=== PATIENT | female | born 1965 | race African-American/Black ===

== ENCOUNTER 2020-08-06 10:41 | Emergency (ER) | payer BC ==
[~2020-08-06] VITALS: Ht 165.1 cm; Wt 81.7 kg
[~2020-08-06 10:41] MED LIST: ALLEGRA180 MG PO; APAP/CODEINE ELI5 M1 OR; CIPROFLOXACIN500 M1 PO; DIFLUCAN150 MG PO; FLEXERIL PO; FLONASE 0.05%50 MCG NASAL; IBUPROFEN 800800 MG PO; MEDROL DOSPAK21 TAB PO; NORCO 5-325 TA1 EACH PO; NORFLEX100 MG PO; PHENERGAN 25 MG25 M1 PO; PROAIR HFA8.5 GM IH; PROMETHAZINE-C120 ML PO; TRAMADOL 50 MG50 MG PO; VITAMIN B-12100 MCG; VITAMINC500 PO; ZOFRAN ODT4 MG PO; ZPAK PO
[2020-08-06] MEDS ORDERED: TRAMADOL 50 MG50 MG PO (13:19)
[2020-08-06 13:55] VITALS: BP 126/78
== END 2020-08-06 13:55 | disposition home or self-care (01) ==
LOC: ER 10:41
DX: M54.5 Low back pain (principal); M25.511 Pain in right shoulder; M54.2 Cervicalgia; Z90.710 Acquired absence of both cervix and uterus; Z79.899 Other long term (current) drug therapy; Z88.0 Allergy status to penicillin; Z88.2 Allergy status to sulfonamides

== ENCOUNTER 2021-04-01 11:12 | Emergency (ER) | payer BC ==
[~2021-04-01] VITALS: Ht 165.1 cm; Wt 86.2 kg
[2021-04-01] MEDS ORDERED: MELOXICAM7.5 MG PO (11:26)
[2021-04-01] MEDS ORDERED: LOSARTAN-HCTZ1 EAC3 PO (11:26)
[2021-04-01] MEDS ORDERED: PROTONIX40 M2 PO (11:26)
[2021-04-01] MEDS ORDERED: LIDOCAINE1 EACH TOP (11:27)
[2021-04-01 13:04] VITALS: BP 138/101
== END 2021-04-01 13:04 | disposition home or self-care (01) ==
LOC: ER 11:12
DX: T25.291A Burn of second degree of multiple sites of right ankle and foot, initial encounter (principal); T31.0 Burns involving less than 10% of body surface; F17.210 Nicotine dependence, cigarettes, uncomplicated; Z90.711 Acquired absence of uterus with remaining cervical stump; Z79.1 Long term (current) use of non-steroidal anti-inflammatories (NSAID); Z79.891 Long term (current) use of opiate analgesic; Z79.899 Other long term (current) drug therapy; Z88.0 Allergy status to penicillin; Z88.2 Allergy status to sulfonamides